=== PATIENT | male | born 1980 | race Caucasian/White ===

== ENCOUNTER → 2019-12-07 | Outpatient (CLI) | payer BC ==
--- NOTE | 2019-12-07 16:21 | KCIC ---
EXAMINATION: CT HEAD WO CONTRAST (CT HEAD WITHOUT IV CONTRAST) CLINICAL HISTORY: Reason: Cluster headaches, hx. of three concussions. Last concussion 2000, fell out of a tree 5 yrs. ago. History: Headaches behind Rt eye 4-5 weeks, usually at night. No visual problems TECHNIQUE: Serial axial images without IV contrast were obtained from the vertex to the foramen magnum. CT Dose Reduction Employed: One or more of the following individualized dose reduction techniques were utilized for this examination: 1. Automated exposure control 2. Adjustment of the mA and/or kV according to patient size 3. Use of iterative reconstruction technique. COMPARISON: None FINDINGS: Post-operative change: None. Acute change: No evidence of an acute infarct or other acute parenchymal process. Hemorrhage: No evidence of acute intracranial hemorrhage. Mass Lesion / Mass Effect: There is no evidence of an intracranial mass or extraaxial fluid collection. No significant mass effect. Chronic change: None apparent. Parenchyma: There is no significant volume loss. The brain parenchyma is otherwise within normal limits for age. Ventricles: The ventricles are within normal limits of size and configuration for age. Paranasal sinuses and skull base: The visualized paranasal sinuses are grossly clear. The skull base and imaged soft tissues are unremarkable. IMPRESSION: Unremarkable exam. Electronically signed by: Humphrey Ventura DO (12/07/2019 4:18 PM) [id number]
== END | disposition home or self-care (01) ==
LOC: KCIC CT 15:17
PROVIDERS: ATTEND Family Medicine
DX: G44.019 Episodic cluster headache, not intractable (principal)
CPT/HCPCS: 70450